=== PATIENT | male | born 1990 | race Caucasian/White ===

== ENCOUNTER 2019-01-25 22:36 | Emergency (ER) | payer OTHER ==
[~2019-01-25] VITALS: Ht 172.7 cm; Wt 84.0 kg
[2019-01-25 22:39] VITALS: BP 138/88
== END 2019-01-25 23:25 | disposition home or self-care (01) ==
LOC: ER 22:37
DX: Z02.89 Encounter for other administrative examinations (principal)
CPT/HCPCS: 93005; 99283